=== PATIENT | male | born 1945 | race Caucasian/White ===

== ENCOUNTER 2022-02-05 01:00 | Inpatient (IN) ==
[2022-02-05] MEDS ORDERED: ALBUTEROL/IPRATROPIUM 3 ML NEB RESP TX STA (01:19)
[2022-02-05] MEDS ORDERED: SODIUM CHLORIDE 0.9% 500 ML IV STA ×2 (01:19→04:09)
[2022-02-05] MEDS ORDERED: methylPREDNISolone SOD SUC 125 MG/2 ML VIAL IV STA (01:19)
[2022-02-05] MEDS ORDERED: DILTIAZEM 25 MG/5 ML VIAL IV STA (01:25)
[2022-02-05 01:49] LABS: Basophils % 0.2 % (0.0-0.8); Hematocrit 46.9 VOL% (42.0-52.0); Immature Granulocytes % 0.7 %; Immature Granulocytes Absolute 0.08 #; Lymphocytes # 0.9 10*3/uL (1.4-4.0); Lymphocytes % 7.5 % (21.2-54.2); Mean Corpuscular Volume 92.9 FL (87-102); Mean Platelet Volume 11.5 FL (9.6-12.0); Monocytes # 0.6 10*3/uL (0.11-0.8); Monocytes % 5.4 % (1.7-12.7); Neutrophils % 86.2 % (38.7-73.9); Platelet Count 165 T/CUMM (130-400); Red Blood Count 5.05 MC/CUMM (3.8-5.5); Red Cell Distribution Width 13.6 % (9.3-17.3); White Blood Count 11.3 T/CUMM (4-12)
[2022-02-05 02:06] LABS: Ammonia < 10 UMOL/L (11-32)
[2022-02-05 02:13] LABS: Lactic Acid 5.8 MMOL/L (0.4-2.0)
[2022-02-05] MEDS ORDERED: SODIUM CHLORIDE 0.9% 2,450 ML IV ONE (02:28)
[2022-02-05 02:32] LABS: Alanine Aminotransferase 962 U/L (16-61); Albumin 3.1 G/DL (3.4-5.0); Alkaline Phosphatase 73 U/L (45-117); Aspartate Amino Transferase 1727 U/L (0-37); Blood Urea Nitrogen 31 MG/DL (7-18); CKMB % 1.77 %; Calcium 9.5 MG/DL (8.5-10.1); Carbon Dioxide 21 MMOL/L (21-32); Chloride 104 MMOL/L (98-107); Glucose 140 MG/DL (74-106); Osmolality,Calculated 281.8 MOS/KG (273-304); Potassium 5.9 MMOL/L (3.5-5.1); Sodium 137 MMOL/L (136-145); Total Protein 7.2 G/DL (6.4-8.2)
[2022-02-05 02:33] LABS: ABG Base Excess -6.1 MMOL/L (-2.5-2.5); ABG HCO3 19.5 MMOL/L (20-26); ABG Oxygen Saturation 97.1 % (95-100); ABG PCO2 31.9 MM HG (35-48); ABG PH 7.365 (7.35-7.45); ABG TCO2 15.7 MMOL/L (23-27)
[2022-02-05] MEDS ORDERED: ENOXAPARIN 100 MG/ML SYRINGE SUBCUT STA (02:47)
[2022-02-05] MEDS ORDERED: PIPERACILLIN/TAZOBACTAM 3,375 MG in SODIUM CHLORIDE 0.9% 100 ML IV SCH ×2 (03:00→06:00)
[2022-02-05] MEDS ORDERED: ONDANSETRON 4 MG/2 ML VIAL IV PRN (03:03)
[2022-02-05] MEDS ORDERED: GLUCAGON 1 MG VIAL IM PRN ×2 (03:03)
[2022-02-05] MEDS ORDERED: ACETAMINOPHEN 325 MG TABLET PO PRN (03:03)
[2022-02-05] MEDS ORDERED: DEXTROSE 50% 25 GM/50 ML VIAL IV PRN (03:03)
[2022-02-05] MEDS ORDERED: DEXTROSE 10% 250 ML BAG IV PRN (03:17)
[2022-02-05 03:59] LABS: Barbiturates Screen,Urine Negative (Negative); Benzodiazepines Screen,Urine Negative (Negative); Cannabinoid Screen,Urine Negative (Negative); Opiate Screen,Urine Negative (Negative); Phencyclidine Screen,Urine Negative (Negative)
[2022-02-05 04:03] LABS: Mucus,Urine Occasional /LPF (Occasional); RBC,Urine 82 /HPF (0-4); Squamous Epithelial Cell,Urine Occasional /HPF (0-10)
[2022-02-05 04:04] LABS: Bilirubin,Urine Small mg/dL (Negative); Blood, Urine Moderate mg/dL (Negative); Glucose,Urine (UA) Negative (Negative); Ketones,Urine Trace mg/dL (Negative); Nitrite,Urine Negative (Negative); Protein,Urine Negative (Negative); Urine Appearance Clear (Clear); Urine Color Yellow (Yellow); Urine Specific Gravity > 1.030 (1.001-1.035); Urine Urobilinogen 0.2 eU/dL (<2.0)
[2022-02-05 04:05] LABS: INR 1.4; PT Patient Result 14.8 SECS (10.5-12.0)
[2022-02-05] MEDS ORDERED: INSULIN REGULAR 10 UNIT, CALCIUM GLUCONATE 1,000 MG in DEXTROSE 10% 250 ML IV ONE (05:00)
[2022-02-05] MEDS: DILTIAZEM INJ 100 MG in SODIUM CHLORIDE 0.9% 100 ML IV SCH (05:08)
[2022-02-05] MEDS: SODIUM CHLORIDE 0.9% 1,000 ML IV SCH ×3 (05:08→23:18)
[2022-02-05 05:29] LABS: Prolactin 115.1 ng/mL (2.1-17.7)
[2022-02-05] MEDS: PIPERACILLIN/TAZOBACTAM 3,375 MG in SODIUM CHLORIDE 0.9% 100 ML IV SCH ×3 (06:09→22:08)
[2022-02-05] MEDS ORDERED: SODIUM CHLORIDE 0.9% 1,000 ML IV ONE (06:17)
[2022-02-05] MEDS: LEVALBUTEROL 1.25 MG/3 ML NEB RESP TX SCH ×3 (07:29→19:55)
[2022-02-05 07:35] LABS: Basophils % 0.1 % (0.0-0.8); Hemoglobin 14.8 GM/DL (14.0-18.0); Immature Granulocytes % 0.6 %; Immature Granulocytes Absolute 0.07 #; Lymphocytes # 0.6 10*3/uL (1.4-4.0); Lymphocytes % 5.2 % (21.2-54.2); Mean Corpuscular HGB Conc 31.5 GM/DL (32-36); Mean Corpuscular Volume 94.6 FL (87-102); Mean Platelet Volume 12.7 FL (9.6-12.0); Monocytes # 0.5 10*3/uL (0.11-0.8); Monocytes % 4.3 % (1.7-12.7); Neutrophils % 89.8 % (38.7-73.9); Platelet Count 160 T/CUMM (130-400); Red Blood Count 4.97 MC/CUMM (3.8-5.5); Red Cell Distribution Width 13.9 % (9.3-17.3); White Blood Count 10.9 T/CUMM (4-12)
[2022-02-05] MEDS: INSULIN REGULAR 100 UNIT/ML SUBCUT SCH ×4 (08:30→21:30)
[2022-02-05 08:56] LABS: Albumin 2.8 G/DL (3.4-5.0); Bilirubin,Total 1.3 MG/DL (0.20-1.00); Calcium 8.8 MG/DL (8.5-10.1); Osmolality,Calculated 287.5 MOS/KG (273-304); Potassium 5.5 MMOL/L (3.5-5.1); Total Protein 6.1 G/DL (6.4-8.2)
[2022-02-05] MEDS ORDERED: VANCOMYCIN INJ 1,250 MG in SODIUM CHLORIDE 0.9% 250 ML IV SCH (10:00)
[2022-02-05] MEDS: PANTOPRAZOLE 40 MG TABLET PO SCH (10:13)
[2022-02-05] MEDS ORDERED: DILTIAZEM 100 MG VIAL.ADD IV ONE (10:25)
[2022-02-05] MEDS ORDERED: SODIUM POLYSTYRENE SULFATE 15 GM/60 ML BOTTLE PO ONE (12:37)
[2022-02-05 13:04] LABS: Acetaminophen < 2.0 UG/ML (10-30); Salicylate 6.4 MG/DL (2.8-20)
[2022-02-05 13:34] LABS: Hepatitis B Surface Ag Quant < 0.10 Index; Hepatitis B Surface Ag Result Non-Reactive (NonReactive); Hepatitis C Virus Ab Quant 0.04 Index; Hepatitis C Virus Ab Result Non-Reactive (NonReactive)
[2022-02-06] MEDS: DILTIAZEM INJ 100 MG in SODIUM CHLORIDE 0.9% 100 ML IV SCH (00:20)
[2022-02-06] MEDS: LEVALBUTEROL 1.25 MG/3 ML NEB RESP TX SCH ×4 (00:45→19:28)
[2022-02-06] MEDS ORDERED: SODIUM ZIRCONIUM CYCLOSILICATE 10 GM PACK PO SCH (02:50)
[2022-02-06 02:52] LABS: ABG Base Excess -13.4 MMOL/L (-2.5-2.5); ABG HCO3 14.3 MMOL/L (20-26); ABG Oxygen Saturation 94.6 % (95-100); ABG PCO2 54.5 MM HG (35-48); ABG TCO2 15.8 MMOL/L (23-27)
[2022-02-06 02:54] LABS: ABG PH 7.107 (7.35-7.45)
[2022-02-06] MEDS ORDERED: SODIUM BICARBONATE 50 MEQ/50 ML VIAL IV ONE ×3 (02:55→16:28)
[2022-02-06] MEDS ORDERED: PHENYLEPHRINE DRIP 40 MG/250 ML PREMIX IV ONE (02:56)
[2022-02-06 02:59] LABS: Basophils % 0.1 % (0.0-0.8); Hematocrit 42.2 VOL% (42.0-52.0); Hemoglobin 12.8 GM/DL (14.0-18.0); Immature Granulocytes % 0.7 %; Lymphocytes # 0.6 10*3/uL (1.4-4.0); Lymphocytes % 4.1 % (21.2-54.2); Mean Corpuscular HGB Conc 30.3 GM/DL (32-36); Mean Corpuscular Volume 98.6 FL (87-102); Mean Platelet Volume 12.5 FL (9.6-12.0); Monocytes % 6.6 % (1.7-12.7); Neutrophils % 88.5 % (38.7-73.9); Platelet Count 128 T/CUMM (130-400); Red Blood Count 4.28 MC/CUMM (3.8-5.5); White Blood Count 14.5 T/CUMM (4-12)
[2022-02-06] MEDS ORDERED: SODIUM BICARB INJ 100 MEQ in STERILE WATER INJ 1,000 ML IV SCH (03:00)
[2022-02-06 03:10] LABS: INR 2.2
[2022-02-06 03:19] LABS: PT Patient Result 22.7 SECS (10.5-12.0)
[2022-02-06 03:22] LABS: Lymphocytes 4 % (20-55); Platelet Estimate Adequate; Total Cells Counted 100
[2022-02-06] MEDS: PHENYLEPHRINE DRIP 40 MG/250 ML PREMIX IV PRN ×2 (03:27→06:03)
[2022-02-06] MEDS ORDERED: SODIUM POLYSTYRENE SULFATE 15 GM/60 ML BOTTLE RECTAL ONE (03:37)
[2022-02-06] MEDS: SODIUM BICARB INJ 150 MEQ in STERILE WATER INJ 850 ML IV SCH ×3 (03:40→23:43)
[2022-02-06 03:45] LABS: Alanine Aminotransferase 1031 U/L (16-61); Alkaline Phosphatase 44 U/L (45-117); Aspartate Amino Transferase 1253 U/L (0-37); Blood Urea Nitrogen 46 MG/DL (7-18); Carbon Dioxide 16 MMOL/L (21-32); Chloride 117 MMOL/L (98-107); Glucose 93 MG/DL (74-106); Osmolality,Calculated 297.8 MOS/KG (273-304); Potassium 5.6 MMOL/L (3.5-5.1); Sodium 144 MMOL/L (136-145); Total Protein 4.9 G/DL (6.4-8.2)
[2022-02-06] MEDS ORDERED: INSULIN REGULAR 10 UNIT, CALCIUM GLUCONATE 1,000 MG in DEXTROSE 10% 250 ML IV ONE ×2 (04:00→16:28)
[2022-02-06 04:18] LABS: ABG Base Excess -9.8 MMOL/L (-2.5-2.5); ABG HCO3 16.8 MMOL/L (20-26); ABG Oxygen Saturation 98.5 % (95-100); ABG PCO2 38.3 MM HG (35-48); ABG PH 7.255 (7.35-7.45); ABG TCO2 15.1 MMOL/L (23-27)
[2022-02-06] MEDS ORDERED: DIGOXIN 0.5 MG/2 ML AMP IV ONE ×2 (04:33→05:30)
[2022-02-06] MEDS ORDERED: DIGOXIN 0.5 MG/2 ML AMP ONE (04:36)
[2022-02-06] MEDS: PIPERACILLIN/TAZOBACTAM 3,375 MG in SODIUM CHLORIDE 0.9% 100 ML IV SCH ×2 (06:08→18:03)
[2022-02-06 06:16] VITALS: BP 131/69
[2022-02-06] MEDS ORDERED: FUROSEMIDE 40 MG/4 ML VIAL IV ONE (06:43)
[2022-02-06] MEDS ORDERED: DEXTROSE 10% 1,000 ML IV SCH (07:00)
[2022-02-06 07:10] LABS: Basophils % 0.2 % (0.0-0.8); Hematocrit 42.4 VOL% (42.0-52.0); Hemoglobin 13.1 GM/DL (14.0-18.0); Immature Granulocytes Absolute 0.19 #; Lymphocytes # 0.8 10*3/uL (1.4-4.0); Lymphocytes % 4.1 % (21.2-54.2); Mean Corpuscular HGB Conc 30.9 GM/DL (32-36); Mean Corpuscular Volume 96.8 FL (87-102); Mean Platelet Volume 12.4 FL (9.6-12.0); Monocytes # 1.2 10*3/uL (0.11-0.8); Monocytes % 6.2 % (1.7-12.7); NRBC # 0.03 10*3/uL; Neutrophils % 88.5 % (38.7-73.9); Platelet Count 116 T/CUMM (130-400); Red Blood Count 4.38 MC/CUMM (3.8-5.5)
[2022-02-06 07:30] LABS: Band Neutrophils 6 % (0-10); Lymphocytes 3 % (20-55); Total Cells Counted 100
[2022-02-06 07:31] LABS: Microcytosis Slight; Ovalocytes Slight
[2022-02-06 07:32] LABS: Acanthocytes Few; Platelet Estimate Adequate; Polychromasia Slight
[2022-02-06 07:48] LABS: Albumin 2.2 G/DL (3.4-5.0); Bilirubin,Direct 1.21 MG/DL (0.0-0.20); Bilirubin,Indirect 0.5 MG/DL (0.0-1.0); Bilirubin,Total 1.7 MG/DL (0.20-1.00); Calcium 7.9 MG/DL (8.5-10.1); Osmolality,Calculated 299.8 MOS/KG (273-304); Potassium 5.8 MMOL/L (3.5-5.1); Thyroid Stimulating Hormone 2.54 uIU/ml (0.358-3.74); Total Protein 5.7 G/DL (6.4-8.2)
[2022-02-06] MEDS: INSULIN REGULAR 100 UNIT/ML SUBCUT SCH (08:06)
[2022-02-06] MEDS: PANTOPRAZOLE 40 MG TABLET PO SCH (08:09)
[2022-02-06] MEDS: ENOXAPARIN 100 MG/ML SYRINGE SUBCUT SCH (08:20)
[2022-02-06] MEDS: HYDROCORTISONE 100 MG VIAL IV SCH ×3 (08:21→18:04)
[2022-02-06] MEDS ORDERED: SODIUM CHLORIDE 0.9% 2,700 ML IV ONE (09:20)
[2022-02-06] MEDS ORDERED: NOREPINEPHRINE 8 MG in SODIUM CHLORIDE 0.9% 242 ML IV PRN (10:00)
[2022-02-06] MEDS ORDERED: VANCOMYCIN INJ 1,250 MG in SODIUM CHLORIDE 0.9% 250 ML IV PRN (13:56)
[2022-02-06] MEDS ORDERED: VANCOMYCIN INJ 2,250 MG in SODIUM CHLORIDE 0.9% 500 ML IV ONE (16:00)
[2022-02-06 16:02] LABS: ABG Base Excess -7.3 MMOL/L (-2.5-2.5); ABG HCO3 18.6 MMOL/L (20-26); ABG Oxygen Saturation 98.4 % (95-100); ABG PCO2 34.1 MM HG (35-48); ABG PH 7.328 (7.35-7.45); ABG TCO2 15.7 MMOL/L (23-27)
[2022-02-06 16:14] LABS: Albumin 2.4 G/DL (3.4-5.0); Bilirubin,Total 1.9 MG/DL (0.20-1.00); Calcium 7.5 MG/DL (8.5-10.1); Potassium 5.8 MMOL/L (3.5-5.1); Total Protein 5.7 G/DL (6.4-8.2)
[2022-02-06] MEDS: SODIUM ZIRCONIUM CYCLOSILICATE 10 GM PACK PER TUBE SCH ×3 (16:19→20:51)
[2022-02-06] MEDS: DESITIN 4OZ/NYSTATIN 15 GRAM MIXTURE PASTE TOP SCH (20:51)
[2022-02-06] MEDS ORDERED: VANCOMYCIN INJ 1,250 MG in SODIUM CHLORIDE 0.9% 250 ML IV ONE (21:00)
[2022-02-07] MEDS: LEVALBUTEROL 1.25 MG/3 ML NEB RESP TX SCH ×4 (00:08→19:36)
[2022-02-07] MEDS: HYDROCORTISONE 100 MG VIAL IV SCH ×4 (00:25→18:05)
[2022-02-07] MEDS: VANCOMYCIN 50 MG/ML 60 ML/BOTTLE PO SCH ×2 (01:21→06:00)
[2022-02-07 04:14] LABS: ABG Base Excess -0.4 MMOL/L (-2.5-2.5); ABG HCO3 24.1 MMOL/L (20-26); ABG Oxygen Saturation 98.8 % (95-100); ABG PCO2 30.4 MM HG (35-48); ABG PH 7.473 (7.35-7.45); ABG TCO2 19.4 MMOL/L (23-27)
[2022-02-07 04:17] LABS: Basophils % 0.1 % (0.0-0.8); Hematocrit 39.9 VOL% (42.0-52.0); Immature Granulocytes % 0.6 %; Lymphocytes # 0.9 10*3/uL (1.4-4.0); Lymphocytes % 5.4 % (21.2-54.2); Mean Corpuscular HGB Conc 32.6 GM/DL (32-36); Mean Corpuscular Volume 91.5 FL (87-102); Mean Platelet Volume 13.2 FL (9.6-12.0); Monocytes # 0.6 10*3/uL (0.11-0.8); Monocytes % 3.6 % (1.7-12.7); NRBC # 0.12 10*3/uL; Neutrophils % 90.3 % (38.7-73.9); Platelet Count 112 T/CUMM (130-400); Red Blood Count 4.36 MC/CUMM (3.8-5.5); Red Cell Distribution Width 13.7 % (9.3-17.3); White Blood Count 16.3 T/CUMM (4-12)
[2022-02-07 04:46] LABS: Albumin 2.1 G/DL (3.4-5.0); Bilirubin,Total 1.7 MG/DL (0.20-1.00); Calcium 7.1 MG/DL (8.5-10.1); Osmolality,Calculated 305.8 MOS/KG (273-304); Potassium 5.1 MMOL/L (3.5-5.1); Total Protein 5.3 G/DL (6.4-8.2)
[2022-02-07] MEDS: PIPERACILLIN/TAZOBACTAM 3,375 MG in SODIUM CHLORIDE 0.9% 100 ML IV SCH (06:01)
[2022-02-07] MEDS: PANTOPRAZOLE 40 MG VIAL IV SCH (08:58)
[2022-02-07] MEDS: SODIUM ZIRCONIUM CYCLOSILICATE 10 GM PACK PER TUBE SCH ×2 (08:58→20:22)
[2022-02-07] MEDS: ENOXAPARIN 100 MG/ML SYRINGE SUBCUT SCH (08:58)
[2022-02-07] MEDS: DESITIN 4OZ/NYSTATIN 15 GRAM MIXTURE PASTE TOP SCH ×2 (09:29→20:22)
[2022-02-07] MEDS: SODIUM BICARB INJ 100 MEQ in DEXTROSE 10% 1,000 ML IV SCH (11:17)
[2022-02-07] MEDS: cefTRIAXone 1,000 MG in SODIUM CHLORIDE 0.9% 100 ML IV SCH (11:17)
[2022-02-07] MEDS: FIDAXOMICIN 200 MG TABLET PO SCH ×2 (11:18→20:21)
[2022-02-07 15:06] LABS: Calcium 6.8 MG/DL (8.5-10.1); Osmolality,Calculated 311.8 MOS/KG (273-304); Potassium 4.2 MMOL/L (3.5-5.1)
[2022-02-07] MEDS ORDERED: MORPHINE 2 MG/1 ML SYRINGE IV ONE (17:09)
[2022-02-08] MEDS: HYDROCORTISONE 100 MG VIAL IV SCH ×4 (00:21→17:44)
[2022-02-08] MEDS: LEVALBUTEROL 1.25 MG/3 ML NEB RESP TX SCH ×4 (00:28→18:57)
[2022-02-08 04:40] LABS: ABG Base Excess 3.1 MMOL/L (-2.5-2.5); ABG HCO3 27.1 MMOL/L (20-26); ABG Oxygen Saturation 98.9 % (95-100); ABG PH 7.483 (7.35-7.45); ABG TCO2 23.1 MMOL/L (23-27)
[2022-02-08 04:57] LABS: Basophils % 0.1 % (0.0-0.8); Hematocrit 36.8 VOL% (42.0-52.0); Immature Granulocytes % 0.6 %; Immature Granulocytes Absolute 0.09 #; Lymphocytes # 0.7 10*3/uL (1.4-4.0); Lymphocytes % 5.2 % (21.2-54.2); Mean Corpuscular HGB Conc 32.6 GM/DL (32-36); Mean Corpuscular Volume 90.9 FL (87-102); Mean Platelet Volume 12.6 FL (9.6-12.0); Monocytes # 0.6 10*3/uL (0.11-0.8); Monocytes % 4.4 % (1.7-12.7); NRBC # 0.12 10*3/uL; Neutrophils % 89.7 % (38.7-73.9); Platelet Count 106 T/CUMM (130-400); Red Blood Count 4.05 MC/CUMM (3.8-5.5); Red Cell Distribution Width 13.6 % (9.3-17.3); White Blood Count 14.1 T/CUMM (4-12)
[2022-02-08 05:13] LABS: Bilirubin,Total 1.5 MG/DL (0.20-1.00); Calcium 6.9 MG/DL (8.5-10.1); Osmolality,Calculated 314.1 MOS/KG (273-304); Potassium 4.1 MMOL/L (3.5-5.1); Total Protein 4.9 G/DL (6.4-8.2)
[2022-02-08] MEDS: SODIUM BICARB INJ 100 MEQ in DEXTROSE 10% 1,000 ML IV SCH ×2 (07:19→08:58)
[2022-02-08] MEDS: ENOXAPARIN 100 MG/ML SYRINGE SUBCUT SCH (08:29)
[2022-02-08] MEDS: SODIUM ZIRCONIUM CYCLOSILICATE 10 GM PACK PER TUBE SCH ×2 (08:29→08:52)
[2022-02-08] MEDS: FIDAXOMICIN 200 MG TABLET PO SCH ×2 (08:29→21:11)
[2022-02-08] MEDS: DESITIN 4OZ/NYSTATIN 15 GRAM MIXTURE PASTE TOP SCH ×2 (08:30→21:11)
[2022-02-08] MEDS: PANTOPRAZOLE 40 MG VIAL IV SCH (08:30)
[2022-02-08] MEDS: cefTRIAXone 1,000 MG in SODIUM CHLORIDE 0.9% 100 ML IV SCH (10:13)
[2022-02-08] MEDS ORDERED: MORPHINE 2 MG/1 ML SYRINGE IV PRN (10:16)
[2022-02-08] MEDS ORDERED: SODIUM BICARB INJ 100 MEQ in STERILE WATER INJ 1,000 ML IV SCH (11:30)
[2022-02-09] MEDS: LEVALBUTEROL 1.25 MG/3 ML NEB RESP TX SCH ×4 (00:26→18:58)
[2022-02-09] MEDS: HYDROCORTISONE 100 MG VIAL IV SCH ×3 (01:19→16:14)
[2022-02-09 04:11] LABS: Albumin 1.9 G/DL (3.4-5.0); Bilirubin,Total 1.4 MG/DL (0.20-1.00); Calcium 7.5 MG/DL (8.5-10.1); Osmolality,Calculated 320.7 MOS/KG (273-304); Potassium 3.6 MMOL/L (3.5-5.1); Total Protein 5.1 G/DL (6.4-8.2)
[2022-02-09] MEDS: ENOXAPARIN 100 MG/ML SYRINGE SUBCUT SCH (08:01)
[2022-02-09] MEDS: PANTOPRAZOLE 40 MG VIAL IV SCH (08:02)
[2022-02-09] MEDS: SODIUM ZIRCONIUM CYCLOSILICATE 10 GM PACK PER TUBE SCH (08:02)
[2022-02-09] MEDS: FIDAXOMICIN 200 MG TABLET PO SCH ×2 (08:02→20:24)
[2022-02-09] MEDS: DESITIN 4OZ/NYSTATIN 15 GRAM MIXTURE PASTE TOP SCH ×2 (08:03→20:25)
[2022-02-09] MEDS ORDERED: VANCOMYCIN INJ 1,250 MG in SODIUM CHLORIDE 0.9% 250 ML IV ONE (09:00)
[2022-02-09 09:04] LABS: Basophils % 0.1 % (0.0-0.8); Hematocrit 37.4 VOL% (42.0-52.0); Immature Granulocytes % 0.5 %; Immature Granulocytes Absolute 0.07 #; Lymphocytes # 0.4 10*3/uL (1.4-4.0); Mean Corpuscular HGB Conc 32.1 GM/DL (32-36); Mean Platelet Volume 12.6 FL (9.6-12.0); Monocytes # 0.8 10*3/uL (0.11-0.8); Monocytes % 5.5 % (1.7-12.7); Neutrophils % 90.9 % (38.7-73.9); Platelet Count 89 T/CUMM (130-400); Red Blood Count 4.02 MC/CUMM (3.8-5.5); Red Cell Distribution Width 13.8 % (9.3-17.3)
[2022-02-09 09:27] LABS: Lymphocytes 4 % (20-55); Total Cells Counted 100
[2022-02-09 09:30] LABS: Platelet Estimate Adequate; Polychromasia Slight
[2022-02-09 09:31] LABS: Ovalocytes Few
[2022-02-09] MEDS: FAMOTIDINE 20 MG/2 ML VIAL IV SCH (10:20)
[2022-02-09] MEDS: HEPARIN DRIP 25,000 UNITS/500 ML PREMIX IV SCH (10:23)
[2022-02-09] MEDS: cefTRIAXone 1,000 MG in SODIUM CHLORIDE 0.9% 100 ML IV SCH (10:24)
[2022-02-09] MEDS: INSULIN LISPRO 100 UNIT/ML SUBCUT SCH ×2 (12:49→18:23)
[2022-02-10] MEDS: LEVALBUTEROL 1.25 MG/3 ML NEB RESP TX SCH ×4 (00:27→19:32)
[2022-02-10] MEDS: HEPARIN DRIP 25,000 UNITS/500 ML PREMIX IV SCH ×3 (00:32→18:48)
[2022-02-10] MEDS: HYDROCORTISONE 100 MG VIAL IV SCH ×3 (00:36→20:19)
[2022-02-10] MEDS: INSULIN LISPRO 100 UNIT/ML SUBCUT SCH ×5 (00:36→23:29)
[2022-02-10 03:50] LABS: Albumin 1.7 G/DL (3.4-5.0); Bilirubin,Total 1.1 MG/DL (0.20-1.00); Calcium 7.4 MG/DL (8.5-10.1); Osmolality,Calculated 325.7 MOS/KG (273-304); Potassium 3.1 MMOL/L (3.5-5.1); Total Protein 4.8 G/DL (6.4-8.2)
[2022-02-10 04:10] LABS: Arterial Base Excess iSTAT 8 MMOL/L (-2.5-2.5); Arterial Bicarbonate iSTAT 33.3 MMOL/L (20-26); Arterial O2 Saturation iSTAT 99 % (95-100); Arterial PCO2 iSTAT 46 MM HG (35-48); Arterial PO2 iSTAT 124 MM HG (80-95); Arterial Total CO2 iSTAT 35 MMO/L (23-27); Arterial pH iSTAT 7.468 (7.35-7.45)
[2022-02-10] MEDS: POTASSIUM BICARB EFFERVESCENT 20 MEQ TAB.EFF PER TUBE PRN ×4 (04:33→10:09)
[2022-02-10 07:45] LABS: Basophils % 0.1 % (0.0-0.8); Hematocrit 37.7 VOL% (42.0-52.0); Hemoglobin 12.2 GM/DL (14.0-18.0); Immature Granulocytes % 0.7 %; Lymphocytes # 0.4 10*3/uL (1.4-4.0); Lymphocytes % 2.6 % (21.2-54.2); Mean Corpuscular HGB Conc 32.4 GM/DL (32-36); Mean Corpuscular Volume 92.2 FL (87-102); Mean Platelet Volume 13.4 FL (9.6-12.0); Monocytes # 1.1 10*3/uL (0.11-0.8); Monocytes % 7.5 % (1.7-12.7); NRBC # 0.05 10*3/uL; Neutrophils % 89.1 % (38.7-73.9); Platelet Count 87 T/CUMM (130-400); Red Blood Count 4.09 MC/CUMM (3.8-5.5); Red Cell Distribution Width 14.1 % (9.3-17.3); White Blood Count 15.1 T/CUMM (4-12)
[2022-02-10] MEDS: FIDAXOMICIN 200 MG TABLET PO SCH ×2 (08:15→20:19)
[2022-02-10] MEDS: DESITIN 4OZ/NYSTATIN 15 GRAM MIXTURE PASTE TOP SCH ×2 (08:16→20:20)
[2022-02-10 09:11] LABS: Lymphocytes 1 % (20-55); Total Cells Counted 100
[2022-02-10 09:13] LABS: Platelet Estimate Adequate; Polychromasia Slight
[2022-02-10] MEDS: FAMOTIDINE 20 MG/2 ML VIAL IV SCH (09:25)
[2022-02-10] MEDS ORDERED: HYDROCORTISONE 100 MG VIAL IV SCH (10:30)
[2022-02-10] MEDS: cefTRIAXone 1,000 MG in SODIUM CHLORIDE 0.9% 100 ML IV SCH (11:27)
[2022-02-11] MEDS: LEVALBUTEROL 1.25 MG/3 ML NEB RESP TX SCH ×4 (00:20→19:50)
[2022-02-11 03:42] LABS: Phosphorous 4.4 MG/DL (2.5-4.9)
[2022-02-11 03:45] LABS: Albumin 1.5 G/DL (3.4-5.0); Bilirubin,Total 0.8 MG/DL (0.20-1.00); Calcium 7.1 MG/DL (8.5-10.1); Osmolality,Calculated 324.7 MOS/KG (273-304); Potassium 3.3 MMOL/L (3.5-5.1); Total Protein 4.3 G/DL (6.4-8.2)
[2022-02-11 04:08] LABS: Basophils % 0.1 % (0.0-0.8); Hematocrit 29.4 VOL% (42.0-52.0); Hemoglobin 9.4 GM/DL (14.0-18.0); Immature Granulocytes % 1.4 %; Immature Granulocytes Absolute 0.17 #; Lymphocytes # 0.5 10*3/uL (1.4-4.0); Lymphocytes % 3.9 % (21.2-54.2); Mean Corpuscular Volume 94.2 FL (87-102); Mean Platelet Volume 13.3 FL (9.6-12.0); Monocytes # 1.2 10*3/uL (0.11-0.8); Monocytes % 10.1 % (1.7-12.7); NRBC # 0.04 10*3/uL; Neutrophils % 84.5 % (38.7-73.9); Platelet Count 70 T/CUMM (130-400); Red Blood Count 3.12 MC/CUMM (3.8-5.5); Red Cell Distribution Width 14.6 % (9.3-17.3)
[2022-02-11 04:11] LABS: Arterial Base Excess iSTAT 11 MMOL/L (-2.5-2.5); Arterial Bicarbonate iSTAT 35.5 MMOL/L (20-26); Arterial O2 Saturation iSTAT 99 % (95-100); Arterial PCO2 iSTAT 45 MM HG (35-48); Arterial PO2 iSTAT 121 MM HG (80-95); Arterial Total CO2 iSTAT 37 MMO/L (23-27); Arterial pH iSTAT 7.511 (7.35-7.45)
[2022-02-11 04:25] LABS: Lymphocytes 5 % (20-55); Platelet Estimate Decreased; Total Cells Counted 100
[2022-02-11 04:26] LABS: Hypochromia Slight
[2022-02-11] MEDS: POTASSIUM BICARB EFFERVESCENT 20 MEQ TAB.EFF PER TUBE PRN ×4 (05:32→20:06)
[2022-02-11] MEDS: INSULIN LISPRO 100 UNIT/ML SUBCUT SCH ×4 (05:42→23:59)
[2022-02-11] MEDS: FIDAXOMICIN 200 MG TABLET PO SCH ×2 (08:19→20:06)
[2022-02-11] MEDS: HYDROCORTISONE 100 MG VIAL IV SCH ×2 (08:19→20:06)
[2022-02-11] MEDS: DESITIN 4OZ/NYSTATIN 15 GRAM MIXTURE PASTE TOP SCH ×2 (08:20→20:52)
[2022-02-11] MEDS: cefTRIAXone 1,000 MG in SODIUM CHLORIDE 0.9% 100 ML IV SCH (10:22)
[2022-02-11] MEDS: FAMOTIDINE 20 MG/2 ML VIAL IV SCH (10:22)
[2022-02-11] MEDS: AMPICILLIN/SULBACTAM 1,500 MG in SODIUM CHLORIDE 0.9% 100 ML IV SCH (17:59)
[2022-02-11] MEDS: HEPARIN DRIP 25,000 UNITS/500 ML PREMIX IV SCH (18:33)
[2022-02-11] MEDS ORDERED: SODIUM CHLORIDE 0.9% 500 ML IV ONE (21:00)
[2022-02-11] MEDS ORDERED: METOPROLOL TARTRATE 5 MG/5 ML VIAL IV ONE (21:00)
[2022-02-12] MEDS: LEVALBUTEROL 1.25 MG/3 ML NEB RESP TX SCH ×4 (00:40→19:10)
[2022-02-12] MEDS: AMPICILLIN/SULBACTAM 1,500 MG in SODIUM CHLORIDE 0.9% 100 ML IV SCH (01:08)
[2022-02-12] MEDS ORDERED: SODIUM CHLORIDE 0.9% 500 ML IV ONE ×2 (02:00→21:48)
[2022-02-12 04:11] LABS: Basophils % 0.1 % (0.0-0.8); Hematocrit 25.2 VOL% (42.0-52.0); Hemoglobin 7.9 GM/DL (14.0-18.0); Immature Granulocytes % 4.2 %; Lymphocytes # 1.4 10*3/uL (1.4-4.0); Lymphocytes % 8.2 % (21.2-54.2); Mean Corpuscular HGB Conc 31.3 GM/DL (32-36); Mean Corpuscular Volume 95.8 FL (87-102); Monocytes # 1.8 10*3/uL (0.11-0.8); NRBC # 0.25 10*3/uL; Neutrophils % 76.5 % (38.7-73.9); Platelet Count 82 T/CUMM (130-400); Red Blood Count 2.63 MC/CUMM (3.8-5.5); Red Cell Distribution Width 16.6 % (9.3-17.3); White Blood Count 16.8 T/CUMM (4-12)
[2022-02-12 04:30] LABS: Band Neutrophils 1 % (0-10); Lymphocytes 9 % (20-55); Nucleated Red Blood Cells 1 (0-5); Polychromasia Slight; Total Cells Counted 100
[2022-02-12 04:31] LABS: Anisocytosis 1+; Microcytosis 1+; Platelet Estimate Decreased
[2022-02-12 04:39] LABS: Albumin 1.5 G/DL (3.4-5.0); Bilirubin,Total 0.8 MG/DL (0.20-1.00); Calcium 7.4 MG/DL (8.5-10.1); Phosphorous 5.3 MG/DL (2.5-4.9); Total Protein 4.6 G/DL (6.4-8.2)
[2022-02-12] MEDS: INSULIN LISPRO 100 UNIT/ML SUBCUT SCH ×3 (05:37→18:21)
[2022-02-12 07:14] LABS: Arterial Base Excess iSTAT 4 MMOL/L (-2.5-2.5); Arterial Bicarbonate iSTAT 29.1 MMOL/L (20-26); Arterial O2 Saturation iSTAT 99 % (95-100); Arterial PCO2 iSTAT 48 MM HG (35-48); Arterial PO2 iSTAT 124 MM HG (80-95); Arterial Total CO2 iSTAT 31 MMO/L (23-27); Arterial pH iSTAT 7.388 (7.35-7.45)
[2022-02-12] MEDS ORDERED: ETOMIDATE 20 MG/10 ML VIAL IV ONE ×3 (07:44→07:53)
[2022-02-12] MEDS ORDERED: SUCCINYLCHOLINE 200 MG/10 ML VIAL ONE (07:45)
[2022-02-12] MEDS ORDERED: SUCCINYLCHOLINE 200 MG/10 ML VIAL IV ONE (07:53)
[2022-02-12] MEDS ORDERED: PHENYLEPHRINE DRIP 40 MG/250 ML PREMIX IV ONE (08:02)
[2022-02-12] MEDS ORDERED: LACTATED RINGERS 250 ML IV ONE ×2 (08:05→09:42)
[2022-02-12] MEDS ORDERED: PHENYLEPHRINE DRIP 40 MG/250 ML PREMIX IV PRN (08:05)
[2022-02-12] MEDS ORDERED: MIDAZOLAM 100 MG in SODIUM CHLORIDE 0.9% 80 ML IV PRN (08:09)
[2022-02-12 09:13] LABS: ABG Base Excess -0.1 MMOL/L (-2.5-2.5); ABG HCO3 24.4 MMOL/L (20-26); ABG Oxygen Saturation 99.8 % (95-100); ABG PCO2 46.2 MM HG (35-48); ABG PH 7.352 (7.35-7.45); ABG TCO2 24.2 MMOL/L (23-27)
[2022-02-12] MEDS ORDERED: AMPICILLIN INJ 1,000 MG in SODIUM CHLORIDE 0.9% 100 ML IV SCH (09:30)
[2022-02-12] MEDS ORDERED: ALBUMIN 25% 50 GM/200 ML VIAL IV ONE (09:33)
[2022-02-12] MEDS ORDERED: NOREPINEPHRINE 4 MG/4 ML VIAL IV ONE (09:35)
[2022-02-12] MEDS: NOREPINEPHRINE 16 MG in SODIUM CHLORIDE 0.9% 234 ML IV PRN ×2 (09:41→22:50)
[2022-02-12] MEDS: PHENYLEPHRINE INJ 160 MG in SODIUM CHLORIDE 0.9% 234 ML IV PRN ×3 (10:20→22:50)
[2022-02-12] MEDS: HYDROCORTISONE 100 MG VIAL IV SCH ×2 (10:38→20:33)
[2022-02-12] MEDS: FAMOTIDINE 20 MG/2 ML VIAL IV SCH (10:39)
[2022-02-12] MEDS: FIDAXOMICIN 200 MG TABLET PO SCH ×2 (10:39→20:33)
[2022-02-12] MEDS: DESITIN 4OZ/NYSTATIN 15 GRAM MIXTURE PASTE TOP SCH ×2 (10:45→20:43)
[2022-02-12] MEDS: HEPARIN DRIP 25,000 UNITS/500 ML PREMIX IV SCH (16:05)
[2022-02-12] MEDS: ALBUMIN 25% 25 GM/100 ML VIAL IV SCH ×2 (16:20→22:55)
[2022-02-12] MEDS: DEXTROSE 10% 250 ML BAG IV PRN ×2 (18:08→23:03)
[2022-02-12 22:50] LABS: Basophils # 0.1 10*3/uL (0.0-0.2); Basophils % 0.4 % (0.0-0.8); Hematocrit 18.7 VOL% (42.0-52.0); Immature Granulocytes % 8.5 %; Lymphocytes % 6.9 % (21.2-54.2); Mean Corpuscular HGB Conc 29.4 GM/DL (32-36); Mean Corpuscular Volume 105.1 FL (87-102); Mean Platelet Volume 14.7 FL (9.6-12.0); Monocytes # 2.3 10*3/uL (0.11-0.8); Monocytes % 7.7 % (1.7-12.7); NRBC # 3.06 10*3/uL; Neutrophils % 76.5 % (38.7-73.9); Platelet Count 73 T/CUMM (130-400); Red Blood Count 1.78 MC/CUMM (3.8-5.5); Red Cell Distribution Width 18.3 % (9.3-17.3); White Blood Count 29.4 T/CUMM (4-12)
[2022-02-12 22:58] LABS: Hemoglobin 5.5 GM/DL (14.0-18.0)
[2022-02-12] MEDS ORDERED: SODIUM CHLORIDE 0.9% 1,000 ML IV PRN (23:01)
[2022-02-12] MEDS ORDERED: SODIUM BICARBONATE 50 MEQ/50 ML VIAL IV ONE ×2 (23:14→23:16)
[2022-02-12] MEDS ORDERED: EPINEPHrine 1 MG/10 ML SYRINGE ONE (23:15)
[2022-02-12 23:16] LABS: Lymphocytes 9 % (20-55); Nucleated Red Blood Cells 8 (0-5); Platelet Estimate Decreased; Total Cells Counted 100
[2022-02-12 23:17] LABS: Polychromasia 1+
[2022-02-12] MEDS ORDERED: EPINEPHrine 1 MG/10 ML SYRINGE IV ONE (23:17)
[2022-02-12 23:18] LABS: Elliptocytes 1+; Macrocytosis 1+
[2022-02-12 23:21] LABS: Anisocytosis 1+
[2022-02-12] MEDS ORDERED: EPINEPHrine 1 MG/ML VIAL ONE (23:36)
[2022-02-13] MEDS: INSULIN LISPRO 100 UNIT/ML SUBCUT SCH
[2022-02-13] MEDS: LEVALBUTEROL 1.25 MG/3 ML NEB RESP TX SCH (00:17)
== END 2022-02-12 23:39 | disposition expired | DRG 871 ==
LOC: N.ED 01:00 → N.EDINP 03:03 → SUATTDRO 03:03 → N.TELEN 11:57 → N.CC 02-06 02:32
PROVIDERS: ADMIT Internal Medicine; ATTEND Internal Medicine